=== PATIENT | female | born 1980 | race Caucasian/White ===

== ENCOUNTER → 2016-04-26 | Outpatient (CLI) | payer OTHER, MEDICAID ==
--- NOTE | 2016-04-26 18:17 | US ---
Complete Pelvic Sonography (Transabdominal and Endovaginal) Clinical History: 36-year-old female with excessive menstruation. Technique: A curvilinear 5 MHz transducer was initially used to sonographically evaluate the pelvis, using a full urinary bladder as window. To better assess the uterine architecture and the adnexal str uctures, endovaginal pelvic sonography was also performed. Color and spectral Doppler were used. LMP: April 05, 2016. The patient is 0. Comparison Study: Pelvic sonography, dated March 15, 2016. Findings: Transabdominal Pelvic Sonography: The uterus is normal in size, shape, and position, measuring 7.9 x 3.2 x 4.7 cm. The right and left adnexal regions are partially obscured by bowel gas, inadequately e valuating the ovaries. There is no free fluid. Endovaginal Pelvic Sonography: The endometrial thickness is 1.1 cm. There is no unusual hyperemia wi th color Doppler. In the right lower uterine segment, there is a 1.7 x 1.3 x 1.8 cm intramural-subser osal fibroid. As a point of reference, on the previous study this measured 1.7 x 1.5 x 1.6 cm. The ri ght ovary measures 3.2 x 1.7 x 2.2 cm, and contains some small follicles. The left ovary measures 3.3 x 1.9 x 1.8 cm, and also contains some small follicles. On the previous exam, there was a collapsing hemorrhagic follicular cyst measuring 1.5 cm, which is no longer seen. Intraovarian vascular flow is documented on each side, with a resistive index of the left ovary measuring 0.58, and of the right o vary measuring 0.57. There is no free fluid. Impression: 1. The endometrial thickness is 11 mm, which is unchanged from March 15, 2016. 2. Persistent lower uterine segment intramural-subserosal fibroid, unchanged. 3. Normal appearance of the ovaries, with no solid or cystic adnexal mass, torsion, or free fluid.
== END ==
LOC: FIMAGING 09:36
PROVIDERS: ATTEND Family Medicine
DX: N92.0 Excessive and frequent menstruation with regular cycle (principal); D25.9 Leiomyoma of uterus, unspecified